=== PATIENT | female | born 1960 | race Caucasian/White ===

== ENCOUNTER 2016-10-26 22:56 | Observation (INO) | payer MEDICARE, MEDICAID ==
[2016-10-26] MEDS ORDERED: ASPIRIN 81 MG TABLET, CHEWABLE PO ONE (23:14)
--- NOTE | 2016-10-26 23:22 | ER Document Report ---
ED Cardiac - General Chief Complaint: Chest Pain Stated Complaint: CHEST DISCOMFORT Mode of Arrival: Medic Information source: Patient Notes: Patient is a 56 year old female with history of hypertension, hyperlipidemia, chronic kidney disease who presents to the ER today the EMS after chest pain that began approximately 10 PM while she was walking around her house. Patient states that it is all left-sided chest pain that was constant and had some nausea with it but denies any vomiting or shortness of breath. She denies any radiation of the pain anywhere. She denies any history of heart attack or stroke but does have family history of both. She is a smoker. Her last stress test was 1 year ago and normal. After 4 baby aspirin, one sublingual nitroglycerin and nitroglycerin paste patient states the chest pain has improved. - Related Data Allergies/Adverse Reactions: No Known Allergies Allergy (Verified 10/27/16 00:09) Home Medications: Current Home Medications Alprazolam [Xanax 0.5 mg Tablet] 0.5 mg PO Q6HP PRN 10/27/16 [History] Calcium Citrate/Vitamin D3 [Calcium Citrate - Vit D3 Tab] 1 tab PO DAILY [History] Chlorzoxazone [Parafon Forte Dsc 500 Mg Tablet] 500 mg PO TIDP PRN 10/27/16 [ History] Cyanocobalamin (Vitamin B-12) [Vitamin B-12 Inj 1000 Mcg/1 ml Vial] 1,000 mcg IM [id number]@1000 10/27/16 [History] Duloxetine HCl [Cymbalta] 60 mg PO DAILY 10/27/16 [History] Gabapentin [Neurontin 300 mg Capsule] 300 mg PO Q8 10/27/16 [History] Hydrochlorothiazide [Hydrodiuril 12.5 mg Capsule] 12.5 mg PO DAILY 10/27/16 [ History] Hydrocodone/Acetaminophen [[place] 10-325 mg Tablet] 1 tab PO BIDP PRN 10/27/16 [ History] Losartan Potassium [Cozaar 100 mg Tablet] 100 mg PO DAILY 10/27/16 [History] Metoprolol Succinate [Toprol XL 100 mg Tablet] 100 mg PO DAILY 10/27/16 [History ] Omeprazole 20 mg PO DAILY 10/27/16 [History] Simvastatin [Zocor 40 mg Tablet] 40 mg PO QHS 10/27/16 [History] Trazodone HCl [Desyrel 50 mg Tablet] 50 mg PO QHS 10/27/16 [History] Vitamin B Complex [B Complex] 1 each PO DAILY 10/27/16 [History] Past Medical History - General Information source: Patient - Social History Smoking Status: Current Every Day Smoker Family History: Reviewed & Not Pertinent Review of Systems - Review of Systems Constitutional: No symptoms reported EENT: No symptoms reported Cardiovascular: See HPI Respiratory: No symptoms reported Gastrointestinal: No symptoms reported Genitourinary: No symptoms reported Female Genitourinary: No symptoms reported Musculoskeletal: No symptoms reported Skin: No symptoms reported Hematologic/Lymphatic: No symptoms reported Neurological/Psychological: No symptoms reported Physical Exam - Vital signs Vitals: Resp BP Pulse Ox 12 110/95 H 94 10/26/16 23:06 10/26/16 23:06 10/26/16 23:06 - Notes Notes: PHYSICAL EXAMINATION: GENERAL: Appears uncomfortable, but in no acute distress. HEAD: Atraumatic, normocephalic. EYES: Pupils equal round and reactive to light, extraocular movements intact, sclera anicteric, conjunctiva are normal. NECK: Normal range of motion, supple without lymphadenopathy LUNGS: CTAB and equal. No wheezes rales or rhonchi. HEART/CHEST: slightly tender to left chest, Regular rate and rhythm without murmurs ABDOMEN: Soft, mild epigastric tenderness. No guarding, no rebound BACK: no vertebral tenderness, normal ROM GI/: no CVA tenderness EXTREMITIES: Normal range of motion, no pitting edema. No cyanosis. NEUROLOGICAL: Cranial nerves grossly intact. Normal sensory/motor exams. PSYCH: Normal mood, normal affect. SKIN: Warm, Dry, normal turgor, no rashes or lesions noted Course - Re-evaluation Re-evalutation: 10/27/16 00:50 Lab work is all unremarkable at this time including a normal set of cardiac enzymes, EKG reveals some T-wave inversions in anterior leads but I have no EKG to compare this to. Patient is feeling much better at this time after nitroglycerin 10/27/16 01:07 Pt hypotensive when I enter the room at 82/54 with a pulse of 48, patient still has Nitropaste on, at this time I took it off and wiped her chest free of it. 10/27/16 03:01 Pt blood pressure normalized only minutes after nitropaste was taken off and she 's remained normotensive since. She was given GI cocktail and states that her pain is now "very slight if not gone." repeat EKG revealed same T wave inversions that we aren't sure are chronic or acute. No changes. 10/27/16 03:36 Dr. Vela agrees to admit pt at this time for chest pain. - Vital Signs Vital signs: Temp Pulse Resp BP Pulse Ox 98.1 F 61 18 144/78 H 99 10/27/16 20:42 10/27/16 20:42 10/27/16 20:42 10/27/16 20:42 10/27/16 20:42 - Laboratory Result Diagrams: 10/26/16 23:07 10/26/16 23:07 Laboratory results interpreted by me: 10/26/16 10/27/16 23:07 03:34 Est GFR (Non-Af Amer) 59 L Glucose 129 H Creatine Kinase 157 H Urine Blood MODERATE H Discharge - Discharge Clinical Impression: Chest pain Qualifiers: Chest pain type: unspecified Qualified Code(s): R07.9 - Chest pain, unspecified Disposition: ADMITTED OBSERVATION Admitting Provider: Hospitalist Unit Admitted: Telemetry
[2016-10-26 23:46] LABS: ABSOLUTE BASOPHILS # (AUTO) 0.1 10^3/uL (0.0-0.2); ABSOLUTE EOSINOPHILS # (AUTO) 0.1 10^3/uL (0.0-0.6); ABSOLUTE LYMPHOCYTES (AUTO) 2.6 10^3/uL (0.5-4.7); ABSOLUTE MONOCYTES (AUTO) 0.4 10^3/uL (0.1-1.4); ABSOLUTE NEUT (AUTO) 4.6 10^3/uL (1.7-8.2); BASOPHILS % (AUTO) 0.9 % (0-2); HEMATOCRIT 41.1 % (36.0-47.0); HEMOGLOBIN 14.3 g/dL (12.0-15.5); HGB HCT DIFFERENCE 1.8; LYMPHOCYTES % (AUTO) 33.6 % (13-45); MEAN CORPUSCULAR HEMOGLOBIN 30.9 pg (27.0-33.4); MEAN CORPUSCULAR HGB CONC 34.9 g/dL (32.0-36.0); MEAN CORPUSCULAR VOLUME 89 fl (80-97); MONOCYTES % (AUTO) 5.6 % (3-13); RED BLOOD COUNT 4.63 10^6/uL (3.72-5.28); RED CELL DISTRIBUTION WIDTH 12.7 % (11.5-14.0); SEGMENTED NEUTROPHILS % (AUTO) 58.9 % (42-78); WHITE BLOOD COUNT 7.8 10^3/uL (4.0-10.5)
[2016-10-26 23:52] LABS: ALANINE AMINOTRANSFERASE 45 U/L (9-52); ALBUMIN 4.3 g/dL (3.5-5.0); ALKALINE PHOSPHATASE 67 U/L (38-126); ANION GAP 12 (5-19); ASPARTATE AMINO TRANSFERASE 36 U/L (14-36); BILIRUBIN,TOTAL 0.5 mg/dL (0.2-1.3); BLOOD UREA NITROGEN 20 mg/dL (7-20); CARBON DIOXIDE 29 mmol/L (22-30); CHLORIDE 102 mmol/L (98-107); CREATINE KINASE 157 U/L (30-135); CREATININE RESULT 0.98 mg/dL (0.52-1.25); GLUCOSE 129 mg/dL (75-110); POTASSIUM 3.7 mmol/L (3.6-5.0); SODIUM 143.4 mmol/L (137-145); TOTAL PROTEIN 6.7 g/dL (6.3-8.2)
[2016-10-27 00:04] LABS: CREATINE KINASE MB 1.82 ng/mL (<4.55)
[2016-10-27 00:05] LABS: TROPONIN I < 0.012 ng/mL
[2016-10-27] MEDS ORDERED: METOCLOPRAMIDE HCL ORAL SOLN 10 MG/10 ML UDCUP PO ONE (01:39)
[2016-10-27] MEDS ORDERED: LIDOCAINE 2% VISCOUS SOLN 20 ML UDCUP PO ONE (01:39)
[2016-10-27] MEDS ORDERED: MAG HYDROX/AL HYDROX/SIMETH SUSP 30 ML UDCUP PO ONE (01:39)
[2016-10-27 03:47] LABS: APPEARANCE,URINE CLEAR; BILIRUBIN,URINE NEGATIVE (NEGATIVE); GLUCOSE, URINE NEGATIVE (NEGATIVE); KETONES,URINE NEGATIVE (NEGATIVE); LEUKOCYTE ESTERASE,URINE NEGATIVE (NEGATIVE); NITRITE,URINE NEGATIVE (NEGATIVE); PROTEIN,URINE NEGATIVE (NEGATIVE); UROBILINOGEN,URINE NEGATIVE mg/dL (<2.0)
[2016-10-27 03:58] LABS: URINE BARBITURATES SCREEN NEGATIVE; URINE METHADONE SCREEN NEGATIVE; URINE PHENCYCLIDINE SCREEN NEGATIVE
[2016-10-27] MEDS ORDERED: ACETAMINOPHEN 325 MG TABLET PO PRN (07:37)
[2016-10-27] MEDS ORDERED: MAG HYDROX/AL HYDROX/SIMETH SUSP 30 ML UDCUP PO PRN (07:39)
--- NOTE | 2016-10-27 08:16 | PDOC H&P ---
History of Present Illness Admission Date/PCP: 10/27/16 03:41 LISA SMITH MD Patient complains of: chest pain History of Present Illness: SERGIO BURROWS is a 56 year old obese female with underlying hypertension and hyperlipidemia, along with one half pack per day cigarette smoker, who presents to the emergency room for evaluation of above complaint. Patient has been discussed with emergency room physician who evaluated the patient. As She was walking back in her house after letting her dogs back inside, she developed the onset of left mid anterior chest pain, with associated nausea and sweating. No vomiting. Nothing in particular made the pain worse. No prior such episodes of pain. She actually took out her own stethoscope and listened to her heart; stated that it "sounded weird." From her description, she has a history of intermittent arrhythmias, which she usually resolves with a cough. No specific diagnosis of atrial fibrillation or atrial flutter. Was given 4 baby aspirin and a single sublingual nitroglycerin along with Nitropaste by EMS. Pain eventually resolved and has not recurred. Currently resting quietly, chest pain-free. No previous myocardial infarction, congestive heart failure. No history of pulmonary embolus or DVT. No unusual lower extremity swelling or tenderness. 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 After, by patient's description, a fairly extensive workup, patient states she was told that her heart murmur was "nothing." Negative family history of coronary artery disease. No alcohol or illicit drug use. Laboratory results are listed in [facility] and are reviewed. X-ray summary results are listed below, with full report(s) reviewed. . EKG's reviewed . No old EKG available for comparison. Social history/personal habits: . Has children. 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 Personal habits as noted above. Family History : Children are healthy. Multiple siblings all have hypertension. Father of cancer. Mother is in her 80s, atrial fibrillation. Patient lives with mother. Allergies/adverse reactions NKDA. Home medications are reviewed by discussion with patient and are to be reconciled by nursing staff in [facility]. Home medications initially autopopulated into [facility] may not accurately reflect patient's true medications, dosages, and/or frequencies. Unfortunately, patient uncertain of most of her medication dosages& frequencies. Order has been entered for staff to contact family, outpatient physician, and/or pharmacy to more accurately determine medications, dosages, and frequencies and to contact physician when that has been accomplished. REVIEW OF SYSTEMS: Constitutional: No fever or chills. Eyes: Wears glasses. ENT: No swallowing problems or complaints. No hearing problems or complaints. Pulmonary: No current complaints. Cardiovascular: See history and present illness. Gastrointestinal: See history and present illness. Skin: No current complaints, including rashes. Hematologic: Easy bruising. Neurologic: No current complaints, including numbness or tingling. Musculoskeletal: Chronic back pain due to degenerative disc disease. Psychiatric: Anxiety depression; denies suicidal or homicidal ideation. Endocrine: No current complaints, including polyuria. Genitourinary: No current complaints, including dysuria. 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 5 feet 4 inches tall. 85.3 kg. BMI 32.3 kg/m. Blood pressure 121/84. 100% saturation on room air. Pulse 57 and regular. Respirations are 18 and unlabored. Temperature 98.4. Obese somewhat chronically ill-appearing female who appears a number of years older than her stated age. Initially asleep, but awakens reasonably easily. Pleasant alert and cooperative. No obvious distress other than somewhat anxious. Skin is warm and dry. No grossly obvious evidence of rash in areas of skin examined. No subcutaneous nodules palpated. ENT: Hearing grossly normal to normal conversation. Tongue midline on protrusion pink and slightly moist. Eyes: No scleral icterus. Pupils equal and reactive to light at 4 mm. [place] conjunctivae. Neck is supple and nontender to gentle active range of motion and palpation. Midline trachea. No palpable thyroid nodule mass enlargement or tenderness. Lymphatic: No palpable cervical or clavicular nodes. Neck and lymphatic exams limited by patient body habitus. Psychiatric: Reasonable insight into acute and chronic medical issues. Oriented to time location and why here. Lungs: Auscultation reveals clear and equal breath sounds bilaterally. No use of accessory respiratory muscles. Cardiovascular: Heart regular rate and rhythm, without gallop murmur or rub. No carotid or abdominal aortic bruits. No ankle or pedal edema. Faintly palpable dorsalis pedis pulses. Abdomen: soft, somewhat obese, nontender with positive bowel sounds. Unable to adequately evaluate abdomen for masses or organomegaly due to body habitus. Compression of neither her sternum, nor left anterior chest wall, nor upper abdomen reproduces her previously noted chest pain. Extremities: Feet are warm and dry. No calf tenderness to compression. No grossly obvious visual evidence of calf swelling. Gentle manipulation of lower extremities fails to reveal any obvious evidence of injury or instability to knees hips or ankles. Neurologic: Moves upper extremities grossly normally. Patellar reflexes absent. Absent Babinski. Light touch is intact at feet. Dorsiflexion and plantarflexion of feet 5 / 5 and symmetric. Past Medical History Cardiac Medical History: Reports: Hyperlipidema, Hypertension, Heart Murmur Denies: Congestive Heart Failure, DVT, Myocardial Infarction, Pulmonary Embolism Pulmonary Medical History: Denies: Asthma, Chronic Obstructive Pulmonary Disease (COPD) EENT Medical History: Reports: Eyes - Wears glasses Denies: Ears, Throat Neurological Medical History: Denies: Hemorrhagic CVA, Ischemic CVA, Seizures Endocrine Medical History: Denies: Diabetes Mellitus Type 1, Diabetes Mellitus Type 2, Hyperthyroidism, Hypothyroidism Renal/ Medical History: Reports: None Malignancy Medical History: Reports: Skin Cancer - Previous excision of same from face. GI Medical History: Reports: Gastroesophageal Reflux Disease - Prominent Denies: Cirrhosis, Hepatitis, Peptic Ulcer Disease Musculoskeltal Medical History: Reports: Other - Chronic back pain from degenerative disc disease. Psychiatric Medical History: Reports: Depression, General Anxiety Disorder, Tobacco Dependency Denies: Alcohol Dependency, Substance Abuse Hematology: Reports: Other - Easy bruising Infectious Medical History: Denies: Hepatitis B, Hepatitis C Past Surgical History Past Surgical History: Reports: Tubal Ligation, Other - Excision of skin cancer from face. Social History Information Source: Patient, Emergency Med Personnel, [facility] Records Lives with: Family Smoking Status: Current Every Day Smoker Frequency of Alcohol Use: None Drugs: None - Advance Directive Resuscitation Status: Full Code Surrogate healthcare decision maker:: Ex-. Family History Family History: Malignancy Parental Family History Reviewed: Yes Children Family History Reviewed: Yes Sibling(s) Family History Reviewed.: Yes Medication/Allergy Home Medications: Calcium Citrate/Vitamin D3 [Calcium Citrate - Vit D3 Tab] 1 tab PO DAILY Chlorzoxazone [Parafon Forte Dsc 500 mg Tablet] 500 mg PO TIDP PRN 10/27/16 Cyanocobalamin (Vitamin B-12) [Vitamin B-12 Inj 1000 Mcg/1 ml Vial] 1,000 mcg IM [id number]@1000 10/27/16 Duloxetine HCl [Cymbalta] 60 mg PO DAILY 10/27/16 Hydrochlorothiazide [Hydrodiuril 12.5 mg Capsule] 12.5 mg PO DAILY 10/27/16 Hydrocodone/Acetaminophen [[place] 10-325 mg Tablet] 1 tab PO BIDP PRN 10/27/16 Losartan Potassium [Cozaar 100 mg Tablet] 100 mg PO DAILY 10/27/16 Metoprolol Succinate [Toprol XL 100 mg Tablet] 100 mg PO DAILY 10/27/16 Omeprazole 20 mg PO DAILY 10/27/16 Simvastatin [Zocor 40 mg Tablet] 40 mg PO QHS 10/27/16 Trazodone HCl [Desyrel 50 mg Tablet] 50 mg PO QHS 10/27/16 Vitamin B Complex [B Complex] 1 each PO DAILY 10/27/16 Acetaminophen [Tylenol 325 mg Tablet] 650 mg PO Q4HP PRN #0 tablet 10/29/16 Alprazolam [Xanax 0.5 mg Tablet] 0.5 mg PO DAILYP PRN #0 tablet 10/29/16 Aspirin [Ecotrin 81 mg EC Tablet] 81 mg PO DAILY #0 tabec 10/29/16 Gabapentin [Neurontin 300 mg Capsule] 300 mg PO Q8 #0 capsule 10/29/16 Allergies/Adverse Reactions: No Known Allergies Allergy (Verified 10/27/16 00:09) Physical Exam Vital Signs: Temp Pulse Resp BP Pulse Ox 98.4 F 18 107/56 L 96 10/26/16 23:12 10/27/16 03:31 10/27/16 03:31 10/27/16 03:31 Results Impressions: Chest X-Ray 10/26/16 23:14 IMPRESSION: NO ACUTE RADIOGRAPHIC FINDING IN THE CHEST. Assessment & Plan - Diagnosis (1) NEHEMIAH (obstructive sleep apnea) Is this a current diagnosis for this admission?: YesPlan: BiPAP daily at bedtime. (2) Chest pain Qualifiers: Chest pain type: unspecified Qualified Code(s): R07.9 - Chest pain, unspecified Is this a current diagnosis for this admission?: YesPlan: Patient will be placed in observation bed under chest pain protocol. Patient understands to notify staff should chest pain recur. Serial troponin's . Repeat EKG. lipid panel. I have strongly urged patient to be careful getting out of bed, to avoid a fall with injury. Knee high SCDs for DVT prophylaxis, along with subcutaneous Lovenox. Impression and plans were discussed with patient, who concurs. Time spent in evaluation and management of patient: 62 minutes. (3) HTN (hypertension) Qualifiers: Hypertension type: essential hypertension Qualified Code(s): I10 - Essential (primary) hypertension Is this a current diagnosis for this admission?: YesPlan: Resume home medications as appropriate once these have been determined and reviewed. (4) Hyperlipidemia Qualifiers: Hyperlipidemia type: unspecified Qualified Code(s): E78.5 - Hyperlipidemia, unspecified Is this a current diagnosis for this admission?: YesPlan: Resume home medications as appropriate once these have been determined and reviewed. (5) Tobacco dependency Is this a current diagnosis for this admission?: YesPlan: When necessary nicotine patch. (6) Arrhythmia Qualifiers: Arrhythmia type: unspecified cardiac arrhythmia Qualified Code(s): I49.9 - Cardiac arrhythmia, unspecified Is this a current diagnosis for this admission?: YesPlan: Probably would benefit from outpatient Holter monitor.
[2016-10-27] MEDS ORDERED: NICOTINE 14 MG/24 HR PATCH.TD24 TD PRN (08:20)
[2016-10-27 11:26] LABS: CHOLESTEROL 212.46 mg/dL (0-200); Direct HDL 52 mg/dL (>40); TRIGLYCERIDES 188 mg/dL (<150)
[2016-10-27 11:37] LABS: DIRECT LDL 135 mg/dL (<100); VLDL CHOLESTEROL 37.6 mg/dL (10-31)
--- NOTE | 2016-10-27 13:38 | EKG REPORT ---
SEVERITY:- ABNORMAL ECG - SINUS RHYTHM ABNORMAL T, CONSIDER ISCHEMIA, ANTERIOR LEADS : Confirmed by: Genesis Encarnacion MD 27-Oct-2016 13:37:53
--- NOTE | 2016-10-27 13:38 | EKG REPORT ---
SEVERITY:- ABNORMAL ECG - SINUS RHYTHM ABNORMAL T, CONSIDER ISCHEMIA, ANTERIOR LEADS : Confirmed by: Genesis Encarnacion MD 27-Oct-2016 13:37:58
--- NOTE | 2016-10-27 13:39 | EKG REPORT ---
SEVERITY:- ABNORMAL ECG - SINUS RHYTHM ABNORMAL T, CONSIDER ISCHEMIA, ANTERIOR LEADS : Confirmed by: Genesis Encarnacion MD 27-Oct-2016 13:38:04
--- NOTE | 2016-10-27 15:14 | PDOC PROGRESS REPORT ---
Subjective Progress Note for:: 10/27/16 Subjective:: SERGIO BURROWS is a 56 year old obese female with underlying hypertension and hyperlipidemia, along with one half pack per day cigarette smoker, who presents to the emergency room for evaluation of above complaint. As She was walking back in her house after letting her dogs back inside, she developed the onset of left mid anterior chest pain, with associated nausea and sweating. No vomiting. Nothing in particular made the pain worse. No prior such episodes of pain. She actually took out her own stethoscope and listened to her heart; stated that it "sounded weird." From her description, she has a history of intermittent arrhythmias, which she usually resolves with a cough. No specific diagnosis of atrial fibrillation or atrial flutter. Was given 4 baby aspirin and a single sublingual nitroglycerin along with Nitropaste by EMS. Pain eventually resolved and has not recurred. No previous myocardial infarction, congestive heart failure. No history of pulmonary embolus or DVT. No unusual lower extremity swelling or tenderness. 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 After, by patient's description, a fairly extensive workup, patient states she was told that her heart murmur was "nothing." Negative family history of coronary artery disease. No alcohol or illicit drug use. Currently symptom-free. States she's been short of breath when walking to the mailbox for some time and with vague complaints of substernal chest pain. Physical Exam Vital Signs: Temp Pulse Resp BP Pulse Ox 97.8 F 68 18 123/42 L 100 10/27/16 11:03 10/27/16 14:00 10/27/16 11:03 10/27/16 11:03 10/27/16 11:03 Intake & Output 10/26/16 10/27/16 10/28/16 06:59 06:59 06:59 Weight 79.1 kg General appearance: PRESENT: no acute distress, obese Eye exam: PRESENT: EOMI. ABSENT: conjunctival injection Mouth exam: PRESENT: moist, neck supple Neck exam: ABSENT: carotid bruit, JVD, thyromegaly Respiratory exam: PRESENT: clear to auscultation pippa, unlabored Cardiovascular exam: PRESENT: RRR. ABSENT: systolic murmur Pulses: PRESENT: normal carotid pulses, normal radial pulses Vascular exam: PRESENT: normal capillary refill GI/Abdominal exam: PRESENT: normal bowel sounds, soft. ABSENT: tenderness Extremities exam: ABSENT: calf tenderness - No palpable cords, pedal edema Musculoskeletal exam: PRESENT: full ROM Neurological exam: PRESENT: alert, altered, oriented to person, oriented to place, oriented to time Psychiatric exam: PRESENT: appropriate affect, normal mood Skin exam: PRESENT: dry, warm Results Laboratory Results: 10/27/16 10:55 Triglycerides 188 H Cholesterol 212.46 H LDL Cholesterol Direct 135 H VLDL Cholesterol 37.6 H HDL Cholesterol 52 10/27/16 10:55 Troponin I < 0.012 EKG Comments: T-wave inversions in the anterior leads. No prior EKG for comparison. Impressions: Chest X-Ray 10/26/16 23:14 IMPRESSION: NO ACUTE RADIOGRAPHIC FINDING IN THE CHEST. Assessment & Plan - Diagnosis (1) Chest pain Qualifiers: Chest pain type: unspecified Qualified Code(s): R07.9 - Chest pain, unspecified Is this a current diagnosis for this admission?: YesPlan: Assuming cardiac enzymes remain negative and the patient remains chest pain- free we'll proceed with a nuclear Cardiolite stress test in the morning. Continue aspirin, full dose statin and consider beta jacob after stress test completed. (2) HTN (hypertension) Qualifiers: Hypertension type: essential hypertension Qualified Code(s): I10 - Essential (primary) hypertension Is this a current diagnosis for this admission?: YesPlan: Likely a beta jacob after stress test complete; currently well controlled (3) Hyperlipidemia Qualifiers: Hyperlipidemia type: unspecified Qualified Code(s): E78.5 - Hyperlipidemia, unspecified Is this a current diagnosis for this admission?: YesPlan: Poorly controlled. Add high-dose statin pending results of the above workup. (4) Tobacco dependency Is this a current diagnosis for this admission?: YesPlan: Cessation counseling offered. (5) Arrhythmia Qualifiers: Arrhythmia type: unspecified cardiac arrhythmia Qualified Code(s): I49.9 - Cardiac arrhythmia, unspecified Is this a current diagnosis for this admission?: YesPlan: No evidence of arrhythmia since admission. Follow-up on workup noted above. Center outpatient cardiology evaluation for Holter monitor if symptoms persist. Addition of beta jacob for blood pressure control should benefit this as well (6) Abnormal EKG Is this a current diagnosis for this admission?: YesPlan: Possible normal variant for her, possible recent infarct with resultant changes - Time Time Spent with patient: 25-34 minutes
[2016-10-27] MEDS: ASPIRIN 81 MG TABLET, ENT COATED PO SCH (18:09)
[2016-10-27] MEDS: GABAPENTIN 300 MG CAPSULE PO SCH ×2 (18:09→21:27)
[2016-10-27] MEDS: LANSOPRAZOLE 30 MG TAB.RAP.DR PO SCH (18:09)
[2016-10-27] MEDS: ENOXAPARIN SODIUM INJ 40 MG/0.4 ML DISP.SYRIN SUBCUT SCH (18:10)
[2016-10-27] MEDS ORDERED: REGADENOSON INJ 0.4 MG/5 ML DISP.SYRIN IV ONE (18:15)
[2016-10-27] MEDS ORDERED: AMINOPHYLLINE INJ/PF 250 MG/10 ML SDV IV ONE (18:15)
[2016-10-27] MEDS: ATORVASTATIN CALCIUM 80 MG TABLET PO SCH (21:27)
[2016-10-27] MEDS: ALPRAZOLAM 0.5 MG TABLET PO PRN (21:31)
[2016-10-28] MEDS: GABAPENTIN 300 MG CAPSULE PO SCH ×3 (05:11→21:18)
[2016-10-28] MEDS: LANSOPRAZOLE 30 MG TAB.RAP.DR PO SCH ×2 (05:11→18:07)
[2016-10-28] MEDS: ENOXAPARIN SODIUM INJ 40 MG/0.4 ML DISP.SYRIN SUBCUT SCH (08:05)
[2016-10-28] MEDS: ASPIRIN 81 MG TABLET, ENT COATED PO SCH (12:46)
--- NOTE | 2016-10-28 15:10 | DRAGON STRESS TEST REPORT ---
INTRAVENOUS LEXISCAN CARDIOLITE STRESS TEST USING SINGLE PHOTON EMMISION COMPUTERIZED TOMOGRAPHIC. DATE OF PROCEDURE: 10/28/2016 INDICATION : Chest pain CARDIAC RISK FACTORS: Hypertension, dyslipidemia and tobacco abuse RESTING EKG: Sinus rhythm with minor nonspecific ST-T wave changes noted STRESS EKG: No significant changes noted with LexiScan bolus REASON FOR TERMINATION: Protocol. PROCEDURE REPORT: Baseline heart rate 85 beats per minute with blood pressure of 164/101. Patient had no significant complaints. Heart rate at 2 minutes post bolus 123 with a blood pressure of on 151/103. 3 minutes post bolus heart rate 115 with blood pressure of 151/104. No significant EKG changes were noted. Patient had no significant complaints during the procedure or postprocedure. CONCLUSIONS: Normal EKG and hemodynamic response to IV LexiScan. NUCLEAR DATA: At rest the patient was given 12.55 millicuries of technetium 99 sestamibi injected intravenously. As per protocol rest gated SPECT images were obtained. Subsequently the patient was given intravenous LexiScan at a dose of 0.4 mg in 5 mL intravenously, followed by flush with normal saline. Subsequently the stress dose of 35.3 millicuries of technetium 99 sestamibi was injected intravenously. As per protocol stress gated images were obtained. NUCLEAR INTERPRETATION: Both raw and processed data were used for interpretation. Visual, qualitative, computer-generated quantitative data was used. There was good myocardial uptake of technetium compound. Motion artifact and soft tissue attenuations were noted. Increased visceral uptake was noted. Significant breast attenuation artifact was noted. This caused some difficulty in interpretation of perfusion of the anterior wall. Decreased uptake was noted and distal anterior wall, slightly more so in the stress imaging as compared to rest imaging. This can be explained by differences in breast attenuation but cannot rule out an area of mild ischemia. No definite corresponding wall motion abnormalities were noted. EKG gated imaging showed LV EF at 52 %, rest and stress gated EF similar visually. T. I D. ratio was 0.95. Lung heart ratio noted to be within normal limits 0.26. No significant extracardiac and abnormal radiotracer activities were noted. RV free wall uptake was noted to be WNL. IMPRESSION: Also refer to comments under nuclear interpretation. Also test results needs to be interpreted in the context of pretest probability. 1. Probable mild mid and distal anterior wall LexiScan induced myocardial ischemia versus differences in breast attenuation artifact. Clinical correlation is requested. SDS score was noted to be only 2. 2. There is no definitive scintigraphic evidence of myocardial infarction/scar. 3. EKG gated imaging shows left ejection fraction of approximately 52 %. No definite regional wall motion abnormalities were noted. 4. Clinical correlation requested as occasionally single vessel disease or balanced ischemia could be missed. In approximately 10% of the cases Lexiscan may not cause adequate vasodilatory stress. RECOMMENDATIONS: Aggressive risk factor modification, medical therapy. Clinical correlation with echocardiogram derived ejection fraction. Inability to exercise by itself can lead to increased cardiovascular event risks. Consider cardiology consultation if clinically indicated. I AM AVAILABLE FOR CARDIOLOGY CONSULTATION AND FOLLOWUP IF REQUESTED BY PMD Hannah Lauren M.D., [employer]ic lamp mechanic, Board certified in cardiovascular diseases, Nuclear cardiology, Echocardiography Cardiac CT and cardiac MRI Ph. [phone] [facility]ENTERAm[facility]
--- NOTE | 2016-10-28 16:53 | PDOC PROGRESS REPORT ---
Subjective Progress Note for:: 10/28/16 Subjective:: SERGIO BURROWS is a 56 year old obese female with underlying hypertension and hyperlipidemia, along with one half pack per day cigarette smoker, who presents to the emergency room for evaluation of above complaint. As She was walking back in her house after letting her dogs back inside, she developed the onset of left mid anterior chest pain, with associated nausea and sweating. No vomiting. Nothing in particular made the pain worse. No prior such episodes of pain. She actually took out her own stethoscope and listened to her heart; stated that it "sounded weird." From her description, she has a history of intermittent arrhythmias, which she usually resolves with a cough. No specific diagnosis of atrial fibrillation or atrial flutter. Was given 4 baby aspirin and a single sublingual nitroglycerin along with Nitropaste by EMS. Pain eventually resolved and has not recurred. No previous myocardial infarction, congestive heart failure. No history of pulmonary embolus or DVT. No unusual lower extremity swelling or tenderness. Negative nuclear stress study in late [address] 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 After, by patient's description, a fairly extensive workup, patient states she was told that her heart murmur was "nothing." Negative family history of coronary artery disease. No alcohol or illicit drug use. Currently symptom-free. States she's been short of breath when walking to the mailbox for some time and with vague complaints of substernal chest pain. Underwent Cardiolite stress test this morning with equivocal findings possibly anterior ischemia, possibly artifact due to breast augmentation. Given EKG changes with T-wave inversions in the anterior leads, Dr. Jack consulted and is recommending CTA chest to rule out pulmonary emboli to explain her symptoms and to establish degree of coronary calcifications. She remains chest pain- free and anxious for discharge home. Physical Exam Vital Signs: Temp Pulse Resp BP Pulse Ox 97.6 F 91 17 139/87 H 97 10/28/16 12:29 10/28/16 14:43 10/28/16 12:29 10/28/16 12:29 10/28/16 12:29 Intake & Output 10/27/16 10/28/16 10/29/16 06:59 06:59 06:59 Intake Total 2117 Balance 2118 Weight 79.5 kg General appearance: PRESENT: no acute distress, obese, well-developed Head exam: PRESENT: atraumatic, normocephalic Eye exam: PRESENT: conjunctiva pink, EOMI, PERRLA. ABSENT: scleral icterus Mouth exam: PRESENT: moist, tongue midline Neck exam: ABSENT: carotid bruit, JVD, lymphadenopathy, thyromegaly Respiratory exam: PRESENT: clear to auscultation pippa. ABSENT: rales, rhonchi, wheezes Cardiovascular exam: PRESENT: RRR. ABSENT: diastolic murmur, rubs, systolic murmur Pulses: PRESENT: normal dorsalis pedis pul Vascular exam: PRESENT: normal capillary refill GI/Abdominal exam: PRESENT: normal bowel sounds, soft. ABSENT: distended, guarding, mass, organolmegaly, rebound, tenderness Rectal exam: PRESENT: deferred Extremities exam: PRESENT: full ROM. ABSENT: calf tenderness, clubbing, pedal edema Neurological exam: PRESENT: alert, awake, oriented to person, oriented to place , oriented to time, oriented to situation. ABSENT: motor sensory deficit Psychiatric exam: PRESENT: appropriate affect, normal mood. ABSENT: homicidal ideation, suicidal ideation Skin exam: PRESENT: dry, intact, warm. ABSENT: cyanosis, rash Results Laboratory Results: 10/27/16 10/27/16 10:55 16:50 Troponin I < 0.012 < 0.012 Impressions: Chest X-Ray 10/26/16 23:14 IMPRESSION: NO ACUTE RADIOGRAPHIC FINDING IN THE CHEST. Assessment & Plan - Diagnosis (1) Chest pain Qualifiers: Chest pain type: unspecified Qualified Code(s): R07.9 - Chest pain, unspecified Is this a current diagnosis for this admission?: YesPlan: cardiac enzymes remain negative and the patient remains chest pain-free with a equivocal nuclear Cardiolite stress test this morning. Continue aspirin, full dose statin and consider beta jacob after stress test. I was present during Dr. Vinson evaluation of the patient discussed case with him thoroughly. We decided to proceed with CT angiography of the chest to rule out pulmonary embolus and to establish the degree of coronary calcifications and if heavy burden he recommends transfer for cardiac catheterization. (2) HTN (hypertension) Qualifiers: Hypertension type: essential hypertension Qualified Code(s): I10 - Essential (primary) hypertension Is this a current diagnosis for this admission?: YesPlan: Head a beta jacob as coronary prophylaxis; currently well controlled (3) Hyperlipidemia Qualifiers: Hyperlipidemia type: unspecified Qualified Code(s): E78.5 - Hyperlipidemia, unspecified Is this a current diagnosis for this admission?: YesPlan: Poorly controlled. Added high-dose statin pending results of the above workup. (4) Tobacco dependency Is this a current diagnosis for this admission?: YesPlan: Cessation counseling offered. (5) Arrhythmia Qualifiers: Arrhythmia type: unspecified cardiac arrhythmia Qualified Code(s): I49.9 - Cardiac arrhythmia, unspecified Is this a current diagnosis for this admission?: YesPlan: No evidence of arrhythmia since admission. Follow-up on workup noted above. Center outpatient cardiology evaluation for Holter monitor if symptoms persist. Addition of beta jacob for blood pressure control should benefit this as well (6) Abnormal EKG Is this a current diagnosis for this admission?: YesPlan: Possible normal variant for her, possible recent infarct with resultant changes. As above. - Time Time Spent with patient: 35 or more minutes Anticipated discharge: Home Within: within 24 hours
[2016-10-28] MEDS ORDERED: METOPROLOL SUCCINATE 25 MG TAB.SR.24H PO ONE (17:15)
[2016-10-28] MEDS: ATORVASTATIN CALCIUM 80 MG TABLET PO SCH (21:17)
[2016-10-28] MEDS: ALPRAZOLAM 0.5 MG TABLET PO PRN (21:17)
[2016-10-28] MEDS ORDERED: ATORVASTATIN CALCIUM 10 MG TABLET PO SCH (22:00)
[2016-10-29] MEDS: GABAPENTIN 300 MG CAPSULE PO SCH (05:27)
[2016-10-29] MEDS: LANSOPRAZOLE 30 MG TAB.RAP.DR PO SCH (05:27)
[2016-10-29] MEDS: ENOXAPARIN SODIUM INJ 40 MG/0.4 ML DISP.SYRIN SUBCUT SCH (08:04)
[2016-10-29] MEDS ORDERED: METOPROLOL SUCCINATE 25 MG TAB.SR.24H PO SCH (10:00)
[2016-10-29] MEDS: ASPIRIN 81 MG TABLET, ENT COATED PO SCH (11:13)
--- NOTE | 2016-10-29 11:58 | PDOC CONSULTATION ---
Consultation Consult Date: 10/28/16 Attending physician:: STEVEN HEATON MD Consult reason:: Chest pain, abnormal stress test History of Present Illness Admission Date/PCP: 10/27/16 07:39 LISA SMITH MD Patient complains of: Chest pain History of Present Illness: SERGIO BURROWS is a 56 year old obese female with underlying hypertension and hyperlipidemia, along with one half pack per day cigarette smoker, who presents to the emergency room for evaluation chest pain. Patient claims as she was walking back in her house after letting her dogs back inside, she developed the onset of left mid anterior chest pain, with associated nausea and sweating. She also noted some associated palpitations and irregular heartbeat. No vomiting. Nothing in particular made the pain worse. No prior such episodes of pain. She actually took out her own stethoscope and listened to her heart; stated that it "sounded weird." From her description, she has a history of intermittent arrhythmias, which she usually resolves with a cough. However this time, it did not resolve spontaneously. No specific diagnosis of atrial fibrillation or atrial flutter. Was given 4 baby aspirin and a single sublingual nitroglycerin along with Nitropaste by EMS. Pain eventually resolved and has not recurred. There has been no recurrence of chest pain. No previous myocardial infarction, congestive heart failure. No history of pulmonary embolus or DVT. No unusual lower extremity swelling or tenderness. Negative nuclear stress study in late [address] 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 After, by patient's description, a fairly extensive workup, patient states she was told that her heart murmur was "nothing." Negative family history of coronary artery disease. This history was reviewed and confirmed and agreed. Patient had a nuclear stress test which was felt to be borderline abnormal. Since patient also has an abnormal EKG, I was asked to evaluate patient and see the patient in consultation. Past Medical History Cardiac Medical History: Reports: Hyperlipidema, Hypertension, Heart Murmur Denies: Congestive Heart Failure, DVT, Myocardial Infarction, Pulmonary Embolism Pulmonary Medical History: Denies: Asthma, Chronic Obstructive Pulmonary Disease (COPD) EENT Medical History: Reports: Eyes - Wears glasses, Other - Easy bruising Denies: Ears, Throat Neurological Medical History: Denies: Hemorrhagic CVA, Ischemic CVA, Seizures Endocrine Medical History: Denies: Diabetes Mellitus Type 1, Diabetes Mellitus Type 2, Hyperthyroidism, Hypothyroidism Renal/ Medical History: Reports: None Malignancy Medical History: Reports: Skin Cancer - Previous excision of same from face. GI Medical History: Reports: Gastroesophageal Reflux Disease - Prominent Denies: Cirrhosis, Hepatitis, Peptic Ulcer Disease Musculoskeltal Medical History: Reports: Other - Chronic back pain from degenerative disc disease. Psychiatric Medical History: Reports: Depression, General Anxiety Disorder, Tobacco Dependency Denies: Alcohol Dependency, Substance Abuse Hematology: Reports: Other - Easy bruising Infectious Medical History: Denies: Hepatitis B, Hepatitis C Past Surgical History Past Surgical History: Reports: Tubal Ligation, Other - Excision of skin cancer from face. Social History Information Source: Patient Lives with: Family Smoking Status: Current Every Day Smoker Number of Years Smokin Frequency of Alcohol Use: None Drugs: None Hx Prescription Drug Abuse: No - Advance Directive Resuscitation Status: Full Code Family History Family History: Reviewed & Not Pertinent Parental Family History Reviewed: Yes Children Family History Reviewed: Yes Sibling(s) Family History Reviewed.: Yes - Negative for premature coronary artery disease or sudden cardiac in the family amongst first degree relatives. Medication/Allergy Home Medications: Calcium Citrate/Vitamin D3 [Calcium Citrate - Vit D3 Tab] 1 tab PO DAILY Chlorzoxazone [Parafon Forte Dsc 500 mg Tablet] 500 mg PO TIDP PRN 10/27/16 Cyanocobalamin (Vitamin B-12) [Vitamin B-12 Inj 1000 Mcg/1 ml Vial] 1,000 mcg IM [id number]@1000 10/27/16 Duloxetine HCl [Cymbalta] 60 mg PO DAILY 10/27/16 Hydrochlorothiazide [Hydrodiuril 12.5 mg Capsule] 12.5 mg PO DAILY 10/27/16 Hydrocodone/Acetaminophen [[place] 10-325 mg Tablet] 1 tab PO BIDP PRN 10/27/16 Losartan Potassium [Cozaar 100 mg Tablet] 100 mg PO DAILY 10/27/16 Metoprolol Succinate [Toprol XL 100 mg Tablet] 100 mg PO DAILY 10/27/16 Omeprazole 20 mg PO DAILY 10/27/16 Simvastatin [Zocor 40 mg Tablet] 40 mg PO QHS 10/27/16 Trazodone HCl [Desyrel 50 mg Tablet] 50 mg PO QHS 10/27/16 Vitamin B Complex [B Complex] 1 each PO DAILY 10/27/16 Acetaminophen [Tylenol 325 mg Tablet] 650 mg PO Q4HP PRN #0 tablet 10/29/16 Alprazolam [Xanax 0.5 mg Tablet] 0.5 mg PO DAILYP PRN #0 tablet 10/29/16 Aspirin [Ecotrin 81 mg EC Tablet] 81 mg PO DAILY #0 tabec 10/29/16 Gabapentin [Neurontin 300 mg Capsule] 300 mg PO Q8 #0 capsule 10/29/16 Allergies/Adverse Reactions: No Known Allergies Allergy (Verified 10/27/16 00:09) Review of Systems Review of Systems: Please see history of present illness and past medical history as wall. Constitutional: No fever or chills reported. Head : No recent chronic headaches, recent head injury. Eyes: No recent eye pain, diplopia, redness, discharge, acute visual changes. Ears: No recent chronic ear pain, acute hearing loss, ear discharge. Oral cavity: No recent ulcerations, bleeding, oral cavity discomfort. Neck: No recent acute neck pain reported. Hematologic: No recent easy bruising or bleeding or hematologic malignancy reported. Lymphatic: No recent lymphatic malignancy, chronic lymphadenopathy reported yet Cardiovascular system review: See history of present illness. Intermittent palpitations. Respiratory system review: No recent chronic cough, hemoptysis, blood clots in the lungs reported. Mild Shortness of breath on exertion Gastrointestinal system review: Negative for any recent acute or chronic abdominal pain, hematemesis, melena, recent change in bowel habits. Genitourinary system review: No recent acute or chronic hematuria, flank pain, UTI etc. reported. Skin system review: Negative for any recent abnormal bruising, no rash, no pruritus reported. Neurologic: No prior history of strokes, mini strokes, seizure disorder. Psychologic: No history of major psychosis or depression reported. Musculoskeletal: Minor aches and pains reported. No acute joint swelling reported. Endocrine: No recent polyuria, polydipsia, recent heat or cold intolerance. Physical Exam Vital Signs: Temp Pulse Resp BP Pulse Ox 98.2 F 100 16 132/71 H 100 10/28/16 16:00 10/28/16 16:00 10/28/16 16:00 10/28/16 16:00 10/28/16 16:00 Intake & Output 10/27/16 10/28/16 10/29/16 06:59 06:59 06:59 Intake Total 8 644 Balance 8 644 Weight 79.5 kg Exam: GENERAL: well-nourished and in no acute distress. Alert and oriented x3 HEAD: Atraumatic, normocephalic. EYES: Pupils equal round and reactive to light, extraocular movements intact, sclera anicteric, conjunctiva are normal. ENT: TMs normal, nares patent, oropharynx clear without exudates. Moist mucous membranes. No oral ulcerations or bleeding gums noted NECK: supple without lymphadenopathy. Trachea is central. No cervical or axillary lymphadenopathy noted. Carotids are 2+, JVD WNL LUNGS: Respiration seems nonlabored, no significant accessory muscle action noted. Breath sounds clear to auscultation bilaterally and equal. No wheezes rales or rhonchi. No significant dullness noted on percussion. CHEST: Palpation of the chest wall shows significant chest wall tenderness but no other abnormalities. 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 ABDOMEN: Soft, no significant tenderness appreciated, normoactive bowel sounds. No guarding, no rebound. No rigidity noted . No masses appreciated. EXTREMITIES: Pedal pulses are 1-2+, no calf tenderness noted. No clubbing or cyanosis.trace to 1+ pedal edema noted NEUROLOGICAL: Focused neurological exam showed no significant neurologic deficit. Normal speech, no focal weakness appreciated. PSYCH: Normal mood, normal affect. Judgment and insight within normal limits. SKIN: No significant ecchymosis, rash, ulcerations or signs of pruritus noted. MUSCULOSKELETAL EXAM: No significant joint swelling noted. Results Laboratory Results: 10/27/16 10/27/16 10:55 16:50 Troponin I < 0.012 < 0.012 EKG Comments: Sinus rhythm with T wave inversion anterior precordial lead V1 to V3. Impressions: Chest X-Ray 10/26/16 23:14 IMPRESSION: NO ACUTE RADIOGRAPHIC FINDING IN THE CHEST. Chest/Abdomen CTA 10/28/16 15:31 IMPRESSION: NORMAL CTA OF THE CHEST. NO PULMONARY EMBOLI. THERE IS AN IRREGULAR MASS IN THE RIGHT LOBE OF THE THYROID, NOT COMPLETELY IMAGED. RECOMMEND FOLLOWUP ULTRASOUND OF THE THYROID. Assessment & Plan - Diagnosis (1) Abnormal EKG Is this a current diagnosis for this admission?: YesPlan: This was evaluated with a nuclear stress test. Nuclear stress test was borderline abnormal but overall low risk. Have scheduled patient for a CT angiogram of the chest to look for any pulmonary embolism or RV enlargement as cause of T-wave inversion anterior precordial lead and also to look for any coronary calcification. Patient in the meantime was encouraged to walk and see if she has any exertional component to the chest pain. (2) Chest pain Qualifiers: Chest pain type: unspecified Qualified Code(s): R07.9 - Chest pain, unspecified Is this a current diagnosis for this admission?: YesPlan: Patient has significant chest wall tenderness. Cardiac enzymes has been negative. Patient claims that chest pain was constant for more than an hour therefore if it was cardiac in etiology, would have expected some troponin I leak or other abnormal cardiac enzymes. Feel that chest discomfort related to musculoskeletal cause. However patient does have significant risk factors and have advised aggressive risk factor modification including smoking cessation. Recommend treatment with statins, aspirin. (3) HTN (hypertension) Qualifiers: Hypertension type: essential hypertension Qualified Code(s): I10 - Essential (primary) hypertension Is this a current diagnosis for this admission?: Yes (4) Hyperlipidemia Qualifiers: Hyperlipidemia type: unspecified Qualified Code(s): E78.5 - Hyperlipidemia, unspecified Is this a current diagnosis for this admission?: YesPlan: Continue statin therapy. (5) Tobacco dependency Is this a current diagnosis for this admission?: YesPlan: Patient has been advised about tobacco cessation. (6) Arrhythmia Qualifiers: Arrhythmia type: unspecified cardiac arrhythmia Qualified Code(s): I49.9 - Cardiac arrhythmia, unspecified Is this a current diagnosis for this admission?: YesPlan: Patient have some unspecified arrhythmias. Will consider event monitoring as an outpatient. - Notes Notes: CODE STATUS was discussed, patient remains full code. Surrogate decision-maker patient's children. Multiple medical problems were addressed. - Time Time Spent: 30 to 50 Minutes - More than 50% of the time spent coordinating care , discussing management plans with involved caregivers. Management plans discussed with involved personnels. Medical decision making was of moderate complexity. Prolonged time was needed to go over results of nuclear stress test , risk factor modification and discussion of differential diagnosis of chest pain etc.
--- NOTE | 2016-10-29 12:00 | PDOC PROGRESS REPORT ---
[id number]. Pt is denying any chest arm or neck discomfort. Patient denying any PND, orthopnea. Patient denied any sustained palpitations, dizziness, syncope, near syncope. Patient denying any fever chills. Patient denying any other significant discomfort. Patient is maintaining sinus rhythm. Patient has ambulated without any recurrence of chest pain. Review of systems: Rest review of systems negative. Medications: Medications have been reviewed. Physical Exam Vital Signs: Temp Pulse Resp BP Pulse Ox 97.4 F 58 L 17 122/80 98 10/29/16 07:15 10/29/16 07:15 10/29/16 07:15 10/29/16 07:15 10/29/16 07:15 Intake & Output 10/28/16 10/29/16 10/30/16 06:59 06:59 06:59 Intake Total 2118 809 Balance 2118 809 Weight 79.5 kg 79.6 kg Exam: GENERAL: well-nourished and in no acute distress. Alert and oriented x3 HEAD: Atraumatic, normocephalic. EYES: Pupils equal round and reactive to light, extraocular movements intact, sclera anicteric, conjunctiva are normal. ENT: TMs normal, nares patent, oropharynx clear without exudates. Moist mucous membranes. No oral ulcerations or bleeding gums noted NECK: supple without lymphadenopathy. Trachea is central. No cervical or axillary lymphadenopathy noted. Carotids are 2+, JVD WNL LUNGS: Respiration seems nonlabored, no significant accessory muscle action noted. Breath sounds clear to auscultation bilaterally and equal. No wheezes rales or rhonchi. No significant dullness noted on percussion. CHEST: Palpation of the chest wall shows mild chest wall tenderness on palpation but no other significant abnormalities. 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 ABDOMEN: Soft, no significant tenderness appreciated, normoactive bowel sounds. No guarding, no rebound. No rigidity noted . No masses appreciated. EXTREMITIES: Pedal pulses are 1-2+, no calf tenderness noted. No clubbing or cyanosis.trace to 1+ pedal edema noted NEUROLOGICAL: Focused neurological exam showed no significant neurologic deficit. Normal speech, no focal weakness appreciated. PSYCH: Normal mood, normal affect. Judgment and insight within normal limits. SKIN: No significant ecchymosis, rash, ulcerations or signs of pruritus noted. MUSCULOSKELETAL EXAM: No significant joint swelling noted. Results Laboratory Results: 10/27/16 10/27/16 10:55 16:50 Troponin I < 0.012 < 0.012 Impressions: Chest X-Ray 10/26/16 23:14 IMPRESSION: NO ACUTE RADIOGRAPHIC FINDING IN THE CHEST. Chest/Abdomen CTA 10/28/16 15:31 IMPRESSION: NORMAL CTA OF THE CHEST. NO PULMONARY EMBOLI. THERE IS AN IRREGULAR MASS IN THE RIGHT LOBE OF THE THYROID, NOT COMPLETELY IMAGED. RECOMMEND FOLLOWUP ULTRASOUND OF THE THYROID. Assessment & Plan - Diagnosis (1) Abnormal EKG Is this a current diagnosis for this admission?: YesPlan: This was evaluated with a nuclear stress test. Nuclear stress test was borderline abnormal but overall low risk. CTA of the chest was negative for pulmonary embolism and did not show any significant coronary calcification. Patient was reassured. A 2-D echo was ordered but has not yet been performed. This can be scheduled as an outpatient and this was explained to the patient.. (2) Chest pain Qualifiers: Chest pain type: unspecified Qualified Code(s): R07.9 - Chest pain, unspecified Is this a current diagnosis for this admission?: YesPlan: Patient has significant chest wall tenderness. Cardiac enzymes has been negative. Patient claims that chest pain was constant for more than an hour therefore if it was cardiac in etiology, would have expected some troponin I leak or other abnormal cardiac enzymes. Feel that chest discomfort related to musculoskeletal cause. However patient does have significant risk factors and have advised aggressive risk factor modification including smoking cessation. Recommend treatment with statins, aspirin. (3) HTN (hypertension) Qualifiers: Hypertension type: essential hypertension Qualified Code(s): I10 - Essential (primary) hypertension Is this a current diagnosis for this admission?: YesPlan: Blood pressure goal in this patient is 135/85 or less. This was discussed with the patient. Currently blood pressure under reasonable control. Better medication for this patient are FLORES inhibitor/ARB/beta jacob etc. discussed side effects of uncontrolled hypertension and also severe hypotension. (4) Hyperlipidemia Qualifiers: Hyperlipidemia type: unspecified Qualified Code(s): E78.5 - Hyperlipidemia, unspecified Is this a current diagnosis for this admission?: YesPlan: Patient noted to have dyslipidemia. LDL goal is less than 70. Recommend statin therapy at least intermediate or high dose, of high potency status. Periodic lipid panel and liver panel is indicated. Patient to report any significant muscle discomfort or other side effects. (5) Tobacco dependency Is this a current diagnosis for this admission?: YesPlan: Patient has history of chronic smoking. Discussed detrimental effect of chronic smoking including worsening COPD, increased risk of cardiovascular events, cerebrovascular events, cancer and multiple other side effects of smoking. The benefits of smoking cessation discussed. Patient unwilling to give acommitment to quit. Patient informed that we'll be happy to help should pt decide to quit. Continue nicotine patch while inpatient. (6) Arrhythmia Qualifiers: Arrhythmia type: unspecified cardiac arrhythmia Qualified Code(s): I49.9 - Cardiac arrhythmia, unspecified Is this a current diagnosis for this admission?: YesPlan: Patient did complain of associated palpitations with her chest pain. It is not clear what started first. Will consider event monitoring as an outpatient. I believe patient may have had a paroxysmal atrial fibrillation or SVT. Patient started on small dose of beta jacob which should BE continued. - Notes Notes: Nuclear stress test results were again reviewed with the patient. Risk factor modification discussed. Importance of weight loss, increasing exercise tolerance and also compliance with CPAP therapy discussed. Patient does prefer to follow up with me. Will consider a 2-D echo and a event monitoring as an outpatient. - Time Time with patient: Greater than 35 minutes - CODE STATUS was discussed, patient remains full code. Surrogate decision-maker unchanged. Multiple medical problems were addressed.More than 50% of the time spent coordinating care, discussing management plans with involved caregivers. Management plans discussed with involved personnels. Medical decision making was of moderate complexity.
[2016-10-29 12:34] VITALS: BP 132/71
--- NOTE | 2016-10-29 17:28 | PDOC DISCHARGE SUMMARY ---
General - Admit/Disc Date/PCP Admission Date/Primary Care Provider: 10/27/16 07:39 LISA SMITH MD Discharge Date: 10/29/16 - Discharge Diagnosis (1) Chest pain Is this a current diagnosis for this admission?: YesSummary: Ruled out for acute coronary ischemia. An equivocal nuclear stress test with possible anterior ischemia noted but thought secondary to artifact from fibrous breast tissue. 3 sets cardiac enzymes were negative for acute ischemia. CT of the chest was negative for pulmonary embolus and showed only minimal coronary artery calcifications. Cardiology was consulted and felt the patient was safe for discharge home on medical management. She is to follow-up with Dr. horta and return to the emergency department for his going symptoms. (2) HTN (hypertension) Is this a current diagnosis for this admission?: YesSummary: Well-controlled (3) Hyperlipidemia Is this a current diagnosis for this admission?: YesSummary: On statin therapy (4) Tobacco dependency Is this a current diagnosis for this admission?: YesSummary: Cessation counseling offered and refused (5) Arrhythmia Is this a current diagnosis for this admission?: Yes (6) Abnormal EKG Is this a current diagnosis for this admission?: YesSummary: Likely normal variant for this patient. - Additional Information Resuscitation Status: Full Code Discharge Diet: Cardiac Discharge Activity: Activity As Tolerated Home Medications: Calcium Citrate/Vitamin D3 [Calcium Citrate - Vit D3 Tab] 1 tab PO DAILY Chlorzoxazone [Parafon Forte Dsc 500 mg Tablet] 500 mg PO TIDP PRN 10/27/16 Cyanocobalamin (Vitamin B-12) [Vitamin B-12 Inj 1000 Mcg/1 ml Vial] 1,000 mcg IM Q3XPEXL@1000 10/27/16 Duloxetine HCl [Cymbalta] 60 mg PO DAILY 10/27/16 Hydrochlorothiazide [Hydrodiuril 12.5 mg Capsule] 12.5 mg PO DAILY 10/27/16 Hydrocodone/Acetaminophen [[place] 10-325 mg Tablet] 1 tab PO BIDP PRN 10/27/16 Losartan Potassium [Cozaar 100 mg Tablet] 100 mg PO DAILY 10/27/16 Metoprolol Succinate [Toprol XL 100 mg Tablet] 100 mg PO DAILY 10/27/16 Omeprazole 20 mg PO DAILY 10/27/16 Simvastatin [Zocor 40 mg Tablet] 40 mg PO QHS 10/27/16 Trazodone HCl [Desyrel 50 mg Tablet] 50 mg PO QHS 10/27/16 Vitamin B Complex [B Complex] 1 each PO DAILY 10/27/16 Acetaminophen [Tylenol 325 mg Tablet] 650 mg PO Q4HP PRN #0 tablet 10/29/16 Alprazolam [Xanax 0.5 mg Tablet] 0.5 mg PO DAILYP PRN #0 tablet 10/29/16 Aspirin [Ecotrin 81 mg EC Tablet] 81 mg PO DAILY #0 tabec 10/29/16 Gabapentin [Neurontin 300 mg Capsule] 300 mg PO Q8 #0 capsule 10/29/16 History of Present Illness History of Present Illness: SERGIO BURROWS is a 56 year old female Hospital Course Hospital Course: As above Physical Exam Vital Signs: Temp Pulse Resp BP Pulse Ox 97.8 F 57 L 20 132/71 H 100 10/29/16 12:30 10/29/16 12:30 10/29/16 12:30 10/29/16 12:30 10/29/16 12:30 Intake & Output 10/28/16 10/29/16 10/30/16 06:59 06:59 06:59 Intake Total 2118 809 Balance 2118 809 Weight 79.5 kg 79.6 kg General appearance: PRESENT: no acute distress, well-developed, well-nourished Head exam: PRESENT: atraumatic, normocephalic Eye exam: PRESENT: conjunctiva pink, EOMI, PERRLA. ABSENT: scleral icterus Mouth exam: PRESENT: moist, tongue midline Neck exam: ABSENT: carotid bruit, JVD, lymphadenopathy, thyromegaly Respiratory exam: PRESENT: clear to auscultation pippa. ABSENT: rales, rhonchi, wheezes Cardiovascular exam: PRESENT: RRR. ABSENT: rubs Pulses: PRESENT: normal dorsalis pedis pul Vascular exam: PRESENT: normal capillary refill GI/Abdominal exam: PRESENT: normal bowel sounds, soft. ABSENT: distended, guarding, mass, organolmegaly, rebound, tenderness Rectal exam: PRESENT: deferred Extremities exam: PRESENT: full ROM. ABSENT: calf tenderness, clubbing, pedal edema Neurological exam: PRESENT: alert, awake, oriented to person, oriented to place , oriented to time, oriented to situation Psychiatric exam: PRESENT: appropriate affect, normal mood Skin exam: PRESENT: dry, intact, warm. ABSENT: cyanosis, rash Results Laboratory Results: 10/27/16 10/27/16 10:55 16:50 Troponin I < 0.012 < 0.012 Impressions: Chest X-Ray 10/26/16 23:14 IMPRESSION: NO ACUTE RADIOGRAPHIC FINDING IN THE CHEST. Chest/Abdomen CTA 10/28/16 15:31 IMPRESSION: NORMAL CTA OF THE CHEST. NO PULMONARY EMBOLI. THERE IS AN IRREGULAR MASS IN THE RIGHT LOBE OF THE THYROID, NOT COMPLETELY IMAGED. RECOMMEND FOLLOWUP ULTRASOUND OF THE THYROID. Qualifiers PATEINT BEING DISCHARGED WITH ANY OF THE FOLLOWING DIAGNOSIS?: No Plan Discharge Plan: Follow-up with cardiology as instructed. Time Spent: Greater than 30 Minutes
== END 2016-10-29 13:00 | disposition home or self-care (01) ==
LOC: ER 22:56 → EH 10-27 03:41 → UNDOADMOB 10-27 03:41 → 5 10-27 07:39 → EH 10-27 07:44 → 5 10-27 07:44
PROVIDERS: ADMIT Family Medicine; ATTEND Family Medicine
DX: R07.9 Chest pain, unspecified (principal); I10 Essential (primary) hypertension; E78.5 Hyperlipidemia, unspecified; F17.210 Nicotine dependence, cigarettes, uncomplicated; I49.9 Cardiac arrhythmia, unspecified; R94.31 Abnormal electrocardiogram [ECG] [EKG]; E66.9 Obesity, unspecified; Z68.30 Body mass index [BMI] 30.0-30.9, adult; K21.9 Gastro-esophageal reflux disease without esophagitis; F41.8 Other specified anxiety disorders; Z79.82 Long term (current) use of aspirin; G47.33 Obstructive sleep apnea (adult) (pediatric)
CPT/HCPCS: 93005 ×3; 99285; 36415 ×2; 82553; 82550; 85025; 80053; 81001; 84484 ×2; 80307; 80061; 93017; 71010; 78452; 71275; 93010 ×2; G0378 ×3; A9500; A9270 ×17; J2785; J3490 ×4; J1650 ×3; J0280; Q9969